=== PATIENT | female | born 1995 | race Caucasian/White ===

== ENCOUNTER → 2022-12-04 | Outpatient (CLI) | payer BC | LOC: LAB 11:16 | DX: N91.3 Primary oligomenorrhea (principal) ==

== ENCOUNTER → 2023-01-03 | Outpatient (CLI) | payer BC | LOC: LAB 13:24 | DX: N91.3 Primary oligomenorrhea (principal) ==

== ENCOUNTER → 2023-02-19 | Outpatient (CLI) | payer BC | LOC: LAB 12:00 | DX: O09.91 Supervision of high risk pregnancy, unspecified, first trimester (principal); Z3A.00 Weeks of gestation of pregnancy not specified ==